=== PATIENT | female | born 1940 | race African-American/Black ===

== ENCOUNTER 2019-04-22 22:57 | Emergency (ER) | payer OTHER ==
[~2019-04-22] VITALS: Ht 149.9 cm; Wt 58.0 kg
[~2019-04-22 22:57] MED LIST: ASCO500C15 PO; CHOL100046 PO; CLOP75TA33 PO; FAMO40TA7 PO; HYDR25TA PO; LOSA25TA26 PO; POTA10TA2 PO
[2019-04-23] MEDS ORDERED: METOCLOPRAMIDE HCL 10MG/2ML VIAL IV ONE (00:30)
[2019-04-23] MEDS ORDERED: DIPHENHYDRAMINE 50MG/ML VIAL IV ONE (00:30)
[2019-04-23 00:40] LABS: BASOPHILS % 0.3 % (0.0-2.0); EOSINOPHILS % 0.6 % (0.0-5.0); HEMATOCRIT. 41.6 % (36.0-48.0); HEMOGLOBIN. 13.6 g/dL (12.0-16.0); LYMPHOCYTES % 10.1 % (20.0-50.0); MEAN CORPUSCULAR HEMOGLOBIN 30.5 pg (28.0-32.0); MEAN CORPUSCULAR VOLUME 93.3 fL (81.0-99.0); MEAN PLATELET VOLUME 7.6 fl (7.4-10.4); MONOCYTES % 5.2 % (2.0-8.0); NEUTROPHILS % 83.8 % (40.0-76.0); PLATELET 183 x1000/uL (130-400); RED BLOOD CELL COUNT 4.46 mill/uL (4.2-5.4); RED CELL DISTRIBUTION WIDTH 13.7 % (11.6-14.6)
[2019-04-23 00:48] LABS: CHLORIDE 106 mEq/L (98-107)
[2019-04-23 08:34] VITALS: BP 140/59
== END 2019-04-23 08:37 | disposition home or self-care (01) ==
LOC: ER 22:57
DX: R42 Dizziness and giddiness (principal); R11.2 Nausea with vomiting, unspecified; R51 Headache; I10 Essential (primary) hypertension; Z88.0 Allergy status to penicillin; Z90.710 Acquired absence of both cervix and uterus
CPT/HCPCS: 36415; 70450; 71045; 80053; 83690; 84484; 85025; 93005; 96374; 96375; 99284; J1200; J2765

== ENCOUNTER 2024-06-07 19:14 | Emergency (ER) | payer OTHER ==
[~2024-06-07] VITALS: Ht 152.4 cm; Wt 63.0 kg
[~2024-06-07 19:14] MED LIST changes: +ASCO500C14 PO; -ASCO500C15 PO; +POTA-216 PO; -POTA10TA2 PO
[2024-06-07 23:40] LABS: BASOPHILS % 0.5 % (0.0-2.0); EOSINOPHILS % 0.5 % (0.0-5.0); HEMATOCRIT. 39.1 % (36.0-48.0); LYMPHOCYTES % 15.3 % (20.0-50.0); MEAN CORPUSCULAR HEMOGLOBIN 30.2 pg (28.0-32.0); MEAN CORPUSCULAR HGB CONC 33.2 g/dL (31.0-37.0); MEAN CORPUSCULAR VOLUME 90.9 fL (81.0-99.0); MEAN PLATELET VOLUME 7.6 fl (7.4-10.4); MONOCYTES % 6.7 % (2.0-8.0); PLATELET 216 x1000/uL (130-400); RED CELL DISTRIBUTION WIDTH 14.2 % (11.6-14.6); WHITE BLOOD COUNT 10.9 x1000/uL (4.5-11.0)
[2024-06-07 23:46] LABS: CHLORIDE 107 mEq/L (98-107); POTASSIUM 3.6 mEq/L (3.5-5.1); SODIUM 142 mEq/L (136-145)
[2024-06-07 23:47] LABS: CALCIUM 9.5 mg/dL (8.7-10.4); CARBON DIOXIDE 27 mEq/L (21-32)
[2024-06-07 23:52] LABS: CREATININE 1.1 mg/dL (0.6-1.0); GLUCOSE 122 mg/dL (70-105); UREA NITROGEN BLOOD 19 mg/dL (9-23)
[2024-06-07 23:53] LABS: INR 0.9; PROTHROMBIN TIME 10.5 sec (9.6-11.0)
[2024-06-07 23:54] LABS: ALANINE AMINOTRANSFERASE < 7 IU/L (10-49); ASPARTATE AMINOTRANSFERASE 17 IU/L (<34); BILIRUBIN TOTAL 0.6 mg/dL (0.1-1.0); PROTEIN TOTAL 6.7 g/dL (6.0-8.3)
[2024-06-08 00:32] VITALS: O2SAT 98
[2024-06-08] MEDS: MORPHINE SULFATE 2 MG/ML INJ (NOT FOR IM USE) IV ONE (02:00)
[2024-06-08] MEDS: ACETAMINOPHEN 325MG TABLET PO ONE (02:00)
[2024-06-08] MEDS: IBUPROFEN 400MG TABLET PO ONE (02:00)
[2024-06-08 04:00] VITALS: BP 177/84; PULSE 79; RESP 16; TEMP 36.83628; O2SAT 100
== END 2024-06-08 04:12 | disposition short-term general hospital (02) ==
LOC: ER 19:14
DX: S82.001A Unspecified fracture of right patella, initial encounter for closed fracture (principal); F32.A Depression, unspecified; Z79.899 Other long term (current) drug therapy; Z88.0 Allergy status to penicillin; Z86.73 Personal history of transient ischemic attack (TIA), and cerebral infarction without residual deficits; Z90.710 Acquired absence of both cervix and uterus; W01.0XXA Fall on same level from slipping, tripping and stumbling without subsequent striking against object, initial encounter; Y93.89 Activity, other specified; Y92.89 Other specified places as the place of occurrence of the external cause; Y99.8 Other external cause status
CPT/HCPCS: 99285; 80053; 85025; 85610; 36415; 73552; 72170; 73560; 73590; 96374; J2270